=== PATIENT | male | born 1960 | race Caucasian/White ===

== ENCOUNTER 2025-01-16 06:19 | Day surgery (SDC) | payer BC, SELFPAY | END 2025-01-16 13:34 | disposition home or self-care (01) | LOC: GI 06:19 | PROVIDERS: ATTENDING PHYSICIAN Internal Medicine Gastroenterology | DX: Z87.19 Personal history of other diseases of the digestive system (principal); K22.89 Other specified disease of esophagus; K31.89 Other diseases of stomach and duodenum; K22.70 Barrett's esophagus without dysplasia; C88.40 Extranodal marginal zone B-cell lymphoma of mucosa-associated lymphoid tissue [MALT-lymphoma] not having achieved remission; K29.50 Unspecified chronic gastritis without bleeding | CPT/HCPCS: 43239; 88305; 88342 ==